=== PATIENT | male | born 1940 | race African-American/Black ===

== ENCOUNTER 2020-06-23 10:54 | Emergency (ER) | payer OTHER ==
--- OUTSIDE RECORDS SUMMARY | 2020-06-23 10:57 | XMS REPORT | Continuity of Care Document ---
:1940 Author Organization [facility] t Address [address] [place] [address] Dr. 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 Social History Smoking Status Start Date Stop Date Source Never Smoker [place] [facility] P júnior Medications Ordered Filled Start Stop Current Ordering Indication Dosage Frequency Signature Comments Components Source Medication Medication Date Date Medication? Clinician (SIG) Name Name atorvastati atorvastati No 1 Q1D atorvastat [place] n 40 mg n 40 mg in 40 mg Famil y tablet Take tablet Take tablet Practic 1 tablet 1 tablet Take 1 e every day every day tablet by oral by oral every day route. route. by oral route. bicalutamid bicalutamid No bicalutami [place] e 50 mg e 50 mg de 50 mg Famil y tablet TAKE tablet TAKE tablet Practic 1 TABLET BY 1 TABLET BY TAKE 1 e MOUTH ONCE MOUTH ONCE TABLET BY DAILY AT DAILY AT MOUTH ONCE BEDTIME BEDTIME DAILY AT BEDTIME Jardiance Jardiance No 1 Q[address]D [address]ard[address] [facility] 25 mg 25 mg 25 mg Family tablet Take tablet Take tablet Practic 1 tablet 1 tablet Take 1 e every day every day tablet by oral by oral every day route. route. by oral route. metformin metformin No 2 BID metformin [facility] ER 500 mg ER 500 mg ER 500 mg Family tablet,exte tablet,exte tablet,ext Practic nded nded ended e release 24 release 24 release 24 hr Take 2 hr Take 2 hr Take 2 tablets tablets tablets twice a day twice a day twice a by oral by oral day by route. route. oral route. tamsulosin tamsulosin No tamsulosin [facility] 0.4 mg 0.4 mg 0.4 mg Family capsule per capsule per capsule Practic Uro Uro per Uro e Immunizations Ordered Immunization Filled Immunization Date Status Commen ts Source Name Name zoster, unspecified zoster, unspecified 2019-06-[address] [place] [place] formulation formulation 00:00:00 Practice pneumococcal pneumococcal 2019-06-13 Completed [facility] jovita conjugate PCV 13 conjugate PCV 13 00:00:00 Pr actice influenza, influenza, 2019-06-[address] [place] [place] [facility] injectable, injectable, 00:00:00 Practice quadrivalent quadrivalent Vital Signs Vital Name Observation Time Observation Value Comments Source BP Diastolic 2020-03-03 00:00:00 274 mm[Hg] [facility] Height 2020-03-03 00:00:00 69.6 [in_i] [facility] BMI (Body Mass 2020-03-03 00:00:00 29.2 kg/m2 [facility] Family Index) Practice BP Systolic 2020-03-03 00:00:00 112 mm[Hg] [facility] Body Weight 2020-03-03 00:00:00 201.2 [lb_av] [facility] BP Diastolic 2019-09-14 00:00:00 65 mm[Hg] [facility] Height 2019-09-14 00:00:00 69.6 [in_i] [facility] BMI (Body Mass 2019-09-14 00:00:00 28.4 kg/m2 [facility] Family Index) Practice BP Systolic 2019-09-14 00:00:00 128 mm[Hg] [facility] Body Weight 2019-09-14 00:00:00 195.5 [lb_av] [facility] Procedures Procedure Date / Time Performing Clinician Source Performed Hemorrhoidectomy 1997-04-14 00:00:00 [facility] Cataract Surgery Complex [facility] Plan of Care Planned Activity Planned Date Details Comments Source Diagnostic Test Pending 2020-03-03 HbA1c (hemoglobin [place] [facility] 00:00:00 A1c), blood [code Practice = HbA1c (hemoglobin A1c), blood] Diagnostic Test Pending 2020-03-03 lipid panel, Vill age Family 00:00:00 serum [code = Practice lipid panel, serum] Instructions [facility] Encounters Start End Encounter Admission Attending Care Care Encounter Source Date/Time Date/Time Type Type Clinicians Facility Department ID 2020-03-03 2020-03-03 Delfino Lopes [facility] [place] - [id number] [facility] 00:00:00 00:00:00 MD Isidoro: [facility] Famil y [address] [facility] , [place] [address], ([facility]) [place] [address] , Ph. 2019-09-14 2019-09-14 Delfino Lopes [facility] [place] - [id number] [facility] 00:00:00 00:00:00 MD Isidoro: [facility] y [address] [facility] [address] [place] [address], ([facility]) [place] [address] , Ph. 2017-12-09 2017-12-09 Outpatient [facility] [id number] Access 00:00:00 00:00:00 H, PROVIDER He alth Results This patient has no known results.
[2020-06-23] MEDS ORDERED: NACL 0.9% IRR SOLN 2,000 ML IRR ONE ×4 (13:13→19:29)
[2020-06-23] MEDS ORDERED: LIDOCAINE VISCOUS 2% SOLN 15 ML UDC ONE (13:14)
[2020-06-23 13:40] LABS: Absolute Lymphocytes (CBC) 0.5 K/uL (0.7-4.9); Basophils % 0.7 % (0-1.3); Hematocrit 37.4 % (39.6-49.0); Lymphocytes % 5.3 % (15.3-44.8); MPV 9.3 fL (7.6-11.3); RBC Red Blood Cell Count 4.34 M/uL (4.33-5.43)
[2020-06-23 13:59] LABS: Protime INR 1.06
[2020-06-23 14:10] LABS: Albumin 3.9 g/dL (3.4-5.0); Bilirubin Direct 0.2 mg/dL (0-0.2); Bilirubin Total 0.8 mg/dL (0.2-1.0); Potassium 3.8 mmol/L (3.5-5.1); Protein, Total 8.7 g/dL (6.4-8.2)
[2020-06-23 14:19] LABS: Blood Morphology Comment NOT SEEN (NOT SEEN); Platelet Estimate ADEQ; White Blood Cell Scan OK (OK)
[2020-06-23] MEDS ORDERED: HYDRALAZINE HCL 20 MG/ML VIAL ONE (15:37)
--- NOTE | 2020-06-23 16:39 | ER ---
Nurse's Notes [facility] Name: Leonid Guerrero Age: 79 yrs Sex: Male : 1940 Arrival Date: 06/23/2020 Time: 10:56 Bed 5 Private MD: Diagnosis: Acute kidney failure, unspecified;Obstructive and reflux uropathy;Hematuria Presentation: 06/23 11:43 Chief complaint: Patient states: "I haven't been able to pee for the last 4 hours and I aa5 keep bleeding from my penis". Pt c/o suprapubic pain. Coronavirus screen: At this time, the client does not indicate any symptoms associated with coronavirus-19. Ebola Screen: Patient negative for fever greater than or equal to 101.5 degrees Fahrenheit, and additional compatible Ebola Virus Disease symptoms. Initial Sepsis Screen: Does the patient meet any 2 criteria? No. Patient's initial sepsis screen is negative. Does the patient have a suspected source of infection? No. Patient's initial sepsis screen is negative. Risk Assessment: Do you want to hurt yourself or someone else? Patient reports no desire to harm self or others. Onset of symptoms was June 23, 2020. 11:43 Method Of Arrival: Ambulatory aa5 11:43 Acuity: ELIZABETH 3 aa5 Historical: - Allergies: 11:45 No Known Allergies; aa5 - PMHx: 11:45 Diabetes - NIDDM; aa5 - PSHx: 11:45 hemorrhoidectomy; aa5 - Immunization history:: Adult Immunizations unknown. - Social history:: Smoking status: Patient denies any tobacco usage or history of. Screenin:58 Abuse screen: Denies threats or abuse. Denies injuries from another. Nutritional hb screening: No deficits noted. Tuberculosis screening: No symptoms or risk factors identified. Fall Risk None identified. Assessment: 12:45 General: Appears in no apparent distress. Behavior is calm, cooperative. Pain: Pain hb currently is 5 out of 10 on a pain scale. Neuro: Level of Consciousness is awake, alert, obeys commands, Oriented to person, place, time, situation. Cardiovascular: Capillary refill < 3 seconds Patient's skin is warm and dry. Respiratory: Respiratory effort is even, unlabored, Respiratory pattern is regular, symmetrical. GI: No signs and/or symptoms were reported involving the gastrointestinal system. : Reports blood in urine, difficulty urinating. EENT: No signs and/or symptoms were reported regarding the EENT system. Derm: Skin is pink, warm \\T\\ dry. Musculoskeletal: No signs and/or symptoms reported regarding the musculoskeletal system. 13:30 Reassessment: Patient appears in no apparent distress at this time. Patient and/or hb family updated on plan of care and expected duration. Pain level reassessed. Patient is alert, oriented x 3, equal unlabored respirations, skin warm/dry/pink. 15:30 Reassessment: Patient appears in no apparent distress at this time. Patient and/or hb family updated on plan of care and expected duration. Pain level reassessed. Patient is alert, oriented x 3, equal unlabored respirations, skin warm/dry/pink. 16:30 Reassessment: Patient appears in no apparent distress at this time. Patient and/or hb family updated on plan of care and expected duration. Pain level reassessed. Patient is alert, oriented x 3, equal unlabored respirations, skin warm/dry/pink. 17:06 Reassessment: Pt vomited x 2. Dr. Cagle notified, zofran administered as ordered. hb 17:57 Reassessment: Patient appears in no apparent distress at this time. Patient and/or hb family updated on plan of care and expected duration. Pain level reassessed. Patient is alert, oriented x 3, equal unlabored respirations, skin warm/dry/pink. 18:12 Reassessment: report called to Jenni SANTANA at [facility] Er. 19:15 Reassessment: Patient appears in no apparent distress at this time. Patient is alert, rr5 oriented x 3, equal unlabored respirations, skin warm/dry/pink. report given to [facility] awake alert vital signs taken and recorded. with 3 way whatley catheter continuous bladder irrigation. Vital Signs: 11:45 BP 196 / 105; Pulse 88; Resp 20 S; Temp 98.2(O); Pulse Ox 97% on R/A; Weight 94.35 kg aa5 (R); Height 5 ft. 11 in. (180.34 cm) (R); 14:22 BP 201 / 87; Pulse 68; Resp 20; Pulse Ox 96% on R/A; mh5 15:30 BP 165 / 78; Pulse 74; Resp 15; Pulse Ox 100% on R/A; hb 16:30 BP 172 / 82; Pulse 75; Resp 17; Pulse Ox 99% ; hb 17:58 BP 151 / 71; Pulse 104; Resp 15; Pulse Ox 96% on R/A; Pain 0/10; hb 19:15 BP 153 / 70; Pulse 99; Resp 19; Pulse Ox 99% ; rr5 11:45 Body Mass Index 29.01 (94.35 kg, 180.34 cm) aa5 ED Course: 10:56 Patient arrived in ED. ds1 11:43 Arm band placed on. aa5 11:44 Triage completed. aa5 12:42 Rahul Cagle MD is Attending Physician. tw4 12:53 Farideh Hawthorne, RN is Primary Nurse. hb 14:23 Patient has correct armband on for positive identification. Placed in gown. Bed in low mh5 position. Call light in reach. Side rails up X 1. Warm blanket given. Pulse ox on. NIBP on. 14:23 Initial lab(s) drawn, by me, sent to lab. Inserted saline lock: 22 gauge antecubital 5 area, using aseptic technique. Blood collected. 14:24 Basic Metabolic Panel Sent. 5 14:24 CBC with Diff Sent. [facility] 14:24 Hepatic Function Sent. [facility] 14:32 3-way catheter inserted, using sterile technique, 20 Fr. Returned bloody urine. hb 16:01 initiated a transfer with Donte Nichole from the [facility]. eb 16:[address] Lopez from [facility] with Dr. Tsering bo for patient transfer consultation. 16:[address] Saba the urologist suggestion clerk for [facility] with eb Dr. Cagle for patient transfer consultation. 17:31 administrative approval given by Donte Nichole/ patient has been accepted to [facility] / Dr. Jorge Lopez has accepted the patient in transfer/ report to be called to [phone]. 18:14 Bladder irrigated via Whatley with 2L bag x 3 normal saline returned hector blood Patient hb tolerated well. 19:14 Primary Nurse role handed off by Farideh Hawthorne, RN mw2 19:16 No provider procedures requiring assistance completed. Patient transferred, IV remains rr5 in place. intact, No redness/swelling at site. Administered Medications: 10:22 Drug: hydrALAZINE 20 mg Route: IV; Rate: bolus; Site: right antecubital; hb 10:24 Follow up: IV Status: Completed infusion; IV Intake: 5ml hb 11:50 Follow up: Response: No adverse reaction hb 17:06 Drug: Zofran (Ondansetron) 4 mg Route: IVP; Site: right antecubital; hb 17:45 Follow up: Response: No adverse reaction hb Intake: 10:24 IV: 5ml; Total: 5ml. hb Output: 15:09 Urine: 1400ml (Whatley); Total: 1400ml. 5 Outcome: 16:39 ER care complete, transfer ordered by . tw4 19:16 Transferred by ground EMS Transfer form completed. rr5 19:16 Condition: stable 19:16 Instructed on the need for transfer. 19:17 Patient left the ED. rr5 Signatures: Camille Madden ds1 Shanika Richardson, RN RN aa5 Farideh Hawthorne, RN RN Iraida Hernandez 5 Rahul Cagle MD MD 4 Patricia Patel mw2 Tiki Sunshine Raymond, RN RN rr5
--- NOTE | 2020-06-23 16:39 | EDPHYS ---
Physician Documentation [facility] Name: Leonid Guerrero Age: 79 yrs Sex: Male : 1940 Arrival Date: 06/23/2020 Time: 10:56 Bed 5 Private MD: ED Physician Rahul Cagle HPI: 06/23 12:57 This 79 yrs old Black Male presents to ER via Ambulatory with complaints of Penile tw4 Bleeding. 12:57 The patient presents with urinary symptoms, retention, unable to void, HEMATURIA. tw4 Onset: The symptoms/episode began/occurred today. Modifying factors: The symptoms are alleviated by nothing, the symptoms are aggravated by nothing. Associated signs and symptoms: The patient has no apparent associated signs or symptoms. The patient has not experienced similar symptoms in the past. Historical: - Allergies: 11:45 No Known Allergies; aa5 - PMHx: 11:45 Diabetes - NIDDM; aa5 - PSHx: 11:45 hemorrhoidectomy; aa5 - Immunization history:: Adult Immunizations unknown. - Social history:: Smoking status: Patient denies any tobacco usage or history of. ROS: 12:57 Constitutional: Negative for fever, chills, and weight loss, Eyes: Negative for injury, tw4 pain, redness, and discharge, Cardiovascular: Negative for chest pain, palpitations, and edema, Respiratory: Negative for shortness of breath, cough, wheezing, and pleuritic chest pain. Exam: 16:39 Constitutional: This is a well developed, well nourished patient who is awake, alert, tw4 and in no acute distress. Head/Face: Normocephalic, atraumatic. Chest/axilla: Normal chest wall appearance and motion. Nontender with no deformity. No lesions are appreciated. Cardiovascular: Regular rate and rhythm with a normal S1 and S2. No gallops, murmurs, or rubs. Normal PMI, no JVD. No pulse deficits. Respiratory: Lungs have equal breath sounds bilaterally, clear to auscultation and percussion. No rales, rhonchi or wheezes noted. No increased work of breathing, no retractions or nasal flaring. 16:39 Back: No spinal tenderness. No costovertebral tenderness. Full range of motion. MS/ Extremity: Pulses equal, no cyanosis. Neurovascular intact. Full, normal range of motion. Neuro: Awake and alert, GCS 15, oriented to person, place, time, and situation. Cranial nerves II-XII grossly intact. Motor strength 5/5 in all extremities. Sensory grossly intact. Cerebellar exam normal. Normal gait. 16:39 Abdomen/GI: Inspection: abdomen appears normal, Bowel sounds: normal, Palpation: moderate abdominal tenderness, in the suprapubic area. Vital Signs: 11:45 BP 196 / 105; Pulse 88; Resp 20 S; Temp 98.2(O); Pulse Ox 97% on R/A; Weight 94.35 kg aa5 (R); Height 5 ft. 11 in. (180.34 cm) (R); 14:22 BP 201 / 87; Pulse 68; Resp 20; Pulse Ox 96% on R/A; mh5 15:30 BP 165 / 78; Pulse 74; Resp 15; Pulse Ox 100% on R/A; hb 16:30 BP 172 / 82; Pulse 75; Resp 17; Pulse Ox 99% ; hb 17:58 BP 151 / 71; Pulse 104; Resp 15; Pulse Ox 96% on R/A; Pain 0/10; hb 19:15 BP 153 / 70; Pulse 99; Resp 19; Pulse Ox 99% ; rr5 11:45 Body Mass Index 29.01 (94.35 kg, 180.34 cm) aa5 MDM: 12:42 Patient medically screened. tw4 16:40 Differential diagnosis: nonspecific abdominal pain, appendicitis, urinary retention, tw4 Davidson catheter problem. Data reviewed: vital signs, nurses notes. Data interpreted: Pulse oximetry: Interpretation: normal. Counseling: I had a detailed discussion with the patient and/or guardian regarding: the historical points, exam findings, and any diagnostic results supporting the discharge/admit diagnosis. 03 12:56 Order name: Basic Metabolic Panel [facility] 06/23 12:56 Order name: CBC with Diff; Complete Time: 14:39 tw4 06/23 14:39 Interpretation: Normal except: HGB 12.1; HCT 37.4; LYMA 0.5; NEUT A 8.9; LYM% 5.3; DERICK% tw4 88.8; RDW 15.5. 03 12:56 Order name: Hepatic Function tw4 06/23 12:56 Order name: PT-INR; Complete Time: 14:38 tw4 06/23 14:38 Interpretation: Within normal limits: PT 12.2. tw4 06/23 12:56 Order name: Ptt, Activated; Complete Time: 14:38 [facility] 06/23 14:38 Interpretation: Abnormal: PTT 23.0. tw4 06/23 12:56 Order name: Basic Metabolic Panel; Complete Time: 14:38 [facility] 06/23 14:38 Interpretation: Normal except: GFR 17; CRE 4.05; BUN 45; GLUC 268; CO2 20. tw 06/23 12:56 Order name: IV Saline Lock; Complete Time: 14:23 tw4 06/23 12:56 Order name: Labs collected and sent; Complete Time: 14:24 tw 06/23 12:56 Order name: Liver (Hepatic) Function; Complete Time: 14:38 [facility] 06/23 14:38 Interpretation: Normal except: TP 8.7; GLOB 4.8; A/G 0.8. [facility] 06/23 14:19 Order name: CBC Smear Scan [facility] 06/23 17:13 Order name: SARS-COV-2 RT PCR EDKS 06/23 12:56 Order name: Davidson-Three way; Complete Time: 14:45 tw4 Administered Medications: 10:22 Drug: hydrALAZINE 20 mg Route: IV; Rate: bolus; Site: right antecubital; hb 10:24 Follow up: IV Status: Completed infusion; IV Intake: 5ml hb 11:50 Follow up: Response: No adverse reaction hb 17:06 Drug: Zofran (Ondansetron) 4 mg Route: IVP; Site: right antecubital; hb 17:45 Follow up: Response: No adverse reaction hb Disposition: 06/23/20 16:39 Transfer ordered to Other Acute Care Facility. Diagnosis are Acute kidney failure, unspecified, Obstructive and reflux uropathy, Hematuria. - Reason for transfer: Higher level of care. - Accepting physician is Dr Soto. - Condition is Stable. - Problem is new. - Symptoms have improved. Signatures: Dispatcher [employer] [facility] Shanika Richardson RN RN aa5 Farideh Hawthorne RN RN hb Rahul Cagle MD MD tw4 Nabil Chase RN RN rr5 Corrections: (The following items were deleted from the chart) 16:34 15:36 CORONAVIRUS+ ordered. EDMS EDMS 19:17 16:39 06/23/2020 16:39 Transfer ordered to Other Acute Care Facility. Diagnosis is rr5 Acute kidney failure, unspecified; Obstructive and reflux uropathy; Hematuria. Reason for transfer: Higher level of care. Accepting physician is Dr Soto. Condition is Stable. Problem is new. Symptoms have improved. tw4
[2020-06-23] MEDS ORDERED: ONDANSETRON 4 MG/2 ML VIAL ONE (17:16)
[2020-06-23 19:22] VITALS: TEMP 98.2
[2020-06-23 19:27] VITALS: BP 153/70; O2SAT 99
== END 2020-06-23 19:17 ==
LOC: ER 10:54
DX: N17.9 Acute kidney failure, unspecified (principal); Z20.822 Contact with and (suspected) exposure to COVID-19; N13.9 Obstructive and reflux uropathy, unspecified; R31.9 Hematuria, unspecified; E11.9 Type 2 diabetes mellitus without complications
CPT/HCPCS: 85025; 80048; 36415; 85610; 80076; 85730; 51700; 96375; 96374; 99285; U0003; J0360; J2405

== ENCOUNTER 2020-08-01 10:46 | Emergency (ER) | payer OTHER ==
--- OUTSIDE RECORDS SUMMARY | 2020-08-01 10:50 | XMS REPORT | Continuity of Care Document ---
:[address] [facility] [place], [place] t Address [address] [place] [address] Dr. Del Toro [address] [place] [address] Care Team Providers Name Role Phone Lelia Lopez DO Attending Clinician Marcy EVERETT Attending Clinician LELIA LOPEZ Attending Clinician Unavailable MARCY Admitting Clinician Unavailable Payers Payer Name Policy Type Policy Effective Date Expiration Date Sour ce Number [facility] [id number] 2019 [facility] [id number] 2019-Pre 00:00:00 L Business Exchange Contracted Medic al Center Problems Condition Condition Condition Status Onset Resolution Last Treating Co mments Source Name Details Category Date Date Treatment Clinician Date Hematuria Hematuria Disease [facility] Microalbum Microalbum Problem Active [facility] inuric inuric 04 Family diabetic Diabetic 00:00: Practi c nephropath Nephropath 00 e y y Malignant Malignant Problem Active Ursula elba tumor of Tumor of 09-13 Family prostate Prostate 00:00: Practi c 00 e Diabetes Diabetes Problem Active Quiroz ge mellitus Mellitus 09-13 Family 00:00: Practic 00 e Dyslipidem Dyslipidem Problem Active [facility] ia ia 09-13 Family 00:00: Practic 00 e Benign Benign Problem Active [place] prostatic Prostatic 09-13 Fami ly hypertroph Hypertroph 00:00: Pr actic y without y without 00 e outflow Outflow obstructio Obstructio n n Allergies, Adverse Reactions, Alerts This patient has no known allergies or adverse reactions. Social History Social Habit Start Date Stop Date Quantity Comments Source Sex Assigned At [facility] Smoking Status Start Date Stop Date Source Never Smoker [facility] Family Erin callejas Medications Ordered Filled Start Stop Current Ordering Indication Dosage Frequency Signature Comments Components Source Medication Medication Date Date Medication? Clinician (SIG) Name Name amLODIPine No 10mg QD Take [address] [address] (NORVASC) 3-15 04-14 tablet (10 Yelena es - 10 MG 00:00: 23:59 mg total) Medica l tablet 00 :00 by mouth Center daily for 30 days. bicalutamid Yes 50mg QD Take [address] [facility] (CASODEX) 3-14 by mouth Luke s - 50 MG 15:35: nightly. Medical tablet 54 Center glipiZIDE Yes 5mg QD Take [address] [address] (GLUCOTROL) 3-14 by mouth Luke s - 5 MG tablet 15:35: daily Medic al 54 Extended Center Release . atorvastati Yes 40mg QD Take [address] n (LIPITOR) 3-14 by mouth Luke s - 40 MG 15:35: daily. Medical tablet 54 Center metFORMIN Yes 500mg Take [address] [facility] (GLUCOPHAGE 3-14 mg by Lukes - ) 500 MG 15:35: mouth 2 Medica l tablet 54 (two) Center times daily with breakfast and dinner. tamsulosin Yes .4mg QD Take 0.[address] (FLOMAX) 3-14 mg by Lukes - 0.4 mg Cap 15:35: mouth Medica l 24 hr 54 daily. Center capsule Missing or No 25mg QD Take [address] Non-Formula 3-14 03-14 by mouth Yelena es - ry 11:37: 00:00 daily. Medical Medication 29 :00 [place] metFORMIN 2020- No 500mg Take [address] (GLUCOPHAGE 3-14 03-14 mg by Lukes - ) 850 MG 11:03: 00:00 mouth 2 Medic al tablet 25 :00 (two) Center times daily with breakfast and dinner . bicalutamid bicalutamid No bicalutami [place] e 50 mg e 50 mg de 50 mg Famil y tablet TAKE tablet TAKE tablet Practic 1 TABLET BY 1 TABLET BY TAKE 1 e MOUTH ONCE MOUTH ONCE TABLET BY DAILY AT DAILY AT MOUTH ONCE BEDTIME BEDTIME DAILY AT BEDTIME glipizide glipizide No 1 Q1D glipizide [facility] ER 5 mg ER 5 mg ER 5 mg Family tablet, tablet, tablet, Practi c extended extended extended e release 24 release 24 release 24 hr Take 1 hr Take 1 hr Take 1 tablet tablet tablet every day every day every day by oral by oral by oral route. route. route. Jardiance Jardiance No Jardiance [facility] 25 mg 25 mg 25 mg Family tablet TAKE tablet TAKE tablet Practic 1 TABLET BY 1 TABLET BY TAKE 1 e MOUTH ONCE MOUTH ONCE TABLET BY DAILY DAILY MOUTH ONCE DAILY metformin metformin No metformin [facility] ER 500 mg ER 500 mg ER 500 mg Family tablet,exte tablet,exte tablet,ext Practic nded nded ended e release 24 release 24 release 24 hr TAKE 2 hr TAKE 2 hr TAKE 2 TABLETS BY TABLETS BY TABLETS BY MOUTH TWICE MOUTH TWICE MOUTH DAILY DAILY TWICE DAILY tamsulosin tamsulosin tamsulosin [facility] 0.4 mg 0.4 mg 0.4 mg [facility] capsule per capsule per capsule Practic Uro Uro per Uro e atorvastati atorvastati No atorvastat [facility] n 40 mg n 40 mg in 40 mg Famil y tablet TAKE tablet TAKE tablet Practic 1 TABLET BY 1 TABLET BY TAKE 1 e MOUTH ONCE MOUTH ONCE TABLET BY DAILY DAILY MOUTH ONCE DAILY Immunizations Ordered Immunization Filled Immunization Date Status Commen ts Source Name Name influenza, influenza, 2020-03-03 Completed [facility] high-dose, high-dose, 16:07:00 Practice quadrivalent quadrivalent zoster, unspecified zoster, unspecified 2019-06-13 Completed [facility] formulation formulation 00:00:00 Practice pneumococcal pneumococcal 2019-06-13 Completed [facility] jovita conjugate PCV 13 conjugate PCV 13 00:00:00 Pr actice influenza, influenza, 2019-06-13 [facility] injectable, injectable, 00:00:00 Practice quadrivalent quadrivalent Vital Signs Vital Name Observation Time Observation Value Comments Source BP Diastolic 2020-07-25 00:00:00 70 mm[Hg] [facility] Height 2020-07-25 00:00:00 69.6 [in_i] [facility] BMI (Body Mass Index) 2020-07-25 00:00:00 28.4 kg/m2 [facility] BP Systolic 2020-07-25 00:00:00 121 mm[Hg] [facility] Body Weight 2020-07-25 00:00:00 196 [lb_av] [facility] Practice BP Diastolic 2020-03-03 00:00:00 274 mm[Hg] [facility] Height 2020-03-03 00:00:00 69.6 [in_i] [facility] Practice BMI (Body Mass Index) 2020-03-03 00:00:00 29.2 kg/m2 [facility] Practice BP Systolic 2020-03-03 00:00:00 112 mm[Hg] [facility] Body Weight 2020-03-03 00:00:00 201.2 [lb_av] [facility] Practice BP Diastolic 2019-09-14 00:00:00 65 mm[Hg] [facility] Height 2019-09-14 00:00:00 69.6 [in_i] [facility] Practice BMI (Body Mass Index) 2019-09-14 00:00:00 28.4 kg/m2 [facility] BP Systolic 2019-09-14 00:00:00 128 mm[Hg] [facility] Body Weight 2019-09-14 00:00:00 195.5 [lb_av] [facility] Practice Systolic blood 2020-06-25 12:00:00 164 mm[Hg] [facility] Diastolic blood 2020-06-25 12:00:00 74 mm[Hg] [facility] S [facility] Heart rate 2020-06-25 12:00:00 72 /min [facility] Body temperature 2020-06-25 12:00:00 35.72 Kina [facility] Respiratory rate 2020-06-25 12:00:00 20 /min [facility] Oxygen saturation in 2020-06-25 12:00:00 97 /min [facility] - Arterial blood by Medical Ce nter Pulse oximetry Body weight 2020-06-23 22:00:00 90.9 kg [facility] Procedures Procedure Date / Time Performing Clinician Source Performed POCT-GLUCOSE METER 2020-06-25 06:10:00 Jenniffer Lopez [facility] CBC W/PLT COUNT & AUTO 2020-06-25 03:59:00 Jenniffer Lopez [facility] BASIC METABOLIC PANEL (7) 2020-06-25 03:59:00 Jenniffer Lopez [facility] MAGNESIUM 2020-06-25 03:59:00 Rivers, Tonny [facility] PHOSPHORUS 2020-06-25 03:59:00 Rivers, [facility] POCT-GLUCOSE METER 2020-06-24 21:40:00 Jenniffer Lopez [facility] CREATININE, RANDOM URINE 2020-06-24 16:22:00 Rivers, [facility] SODIUM, RANDOM URINE 2020-06-24 16:22:00 Rivers, [facility] POCT-GLUCOSE METER 2020-06-24 16:07:00 eJnniffer Lopez [facility] POCT-GLUCOSE METER 2020-06-24 12:28:00 Jenniffer Lopez [facility] US RENAL COMPLETE 2020-06-24 12:18:00 Marcy [facility] CT ABDOMEN/PELVIS WITHOUT 2020-06-24 11:28:00 Trisha Vidal Critical access hospital CONTRAST [facility] POCT-GLUCOSE METER 2020-06-24 06:23:00 Jenniffer Lopez [facility] CBC W/PLT COUNT & AUTO 2020-06-24 03:34:00 [facility] COMPREHENSIVE METABOLIC 2020-06-24 03:33:00 [facility] PROTHROMBIN TIME/INR 2020-06-24 03:33:00 [facility] PSA 2020-06-24 03:33:00 [facility] URINALYSIS WITH MICROSCOPIC 2020-06-23 23:39:00 [facility] IF INDICATED [facility] CREATININE, RANDOM URINE 2020-06-23 23:39:00 [facility] SODIUM, RANDOM URINE 2020-06-23 23:39:00 [facility] URINALYSIS MICROSCOPIC 2020-06-23 23:39:00 Marcy [facility] POCT-GLUCOSE METER 2020-06-23 23:00:[address] [facility] Hemorrhoidectomy 1997-04-14 00:00:00 [facility] Cataract Surgery Complex [facility] Practice Plan of Care Planned Activity Planned Date Details Comments Source Diagnostic Test 2020-07-25 HbA1c (hemoglobin [facility] Pending 00:00:00 A1c), blood [code = Practice HbA1c (hemoglobin A1c), blood] Diagnostic Test 2020-07-25 lipid panel, serum [facility] Pending 00:00:00 [code = lipid panel, Practic e serum] Future Scheduled Test 2020-06-[address] [facility] - [facility] measurement Medical Center (procedure) [code = 66518350] Future Scheduled Test 2020-04-[address] [facility] - 00:00:00 (12+) [code = Medical Center DEPRESSION SCREENING (12+)] Future Scheduled Test 1990 SHINGLES VACCINES ([address] [facility] - 00:00:00 of 2) [code = Medical Center SHINGLES VACCINES (1 of 2)] Future Scheduled Test 1959-10-29 DTAP/TDAP/TD [facility] VACCINES (1 - Tdap) Medical Center [code = DTAP/TDAP/TD VACCINES (1 - Tdap)] Future Scheduled Test [address] [facility] - 00:00:00 SCREENING [code = Medical nter HEPATITIS C SCREENING] Future Scheduled Test 1950 DIABETIC EYE EXAM [facility] [code = DIABETIC EYE Medical Center EXAM] Future Scheduled Test [facility] examination Medical Center (regime/therapy) [code = 594978693] Future Scheduled Test 1950 Urine screening for [facility] - 00:[facility]00 protein (procedure) Medical Center [code = 702588258] Future Scheduled Test MEDICARE ANNUAL [facility] - 00:00:00 WELLNESS (YEAR 2 or Medical Center FIRST YEAR if no IPPE) [code = MEDICARE ANNUAL WELLNESS (YEAR 2 or FIRST YEAR if no IPPE)] Future Scheduled Test Your labs are normal [facility] except... 1. Lipids Practice are higher than I would like. Take your meds as directed. I recommend low fat diet and walking. I will monitor. 2. Your Diabetes is high. Take your meds. I am adding a new med, Glipizide. I recommend low carb / sugar diet and walking. I will monitor. [code = Your labs are normal except... 1. Lipids are higher than I would like. Take your meds as directed. I] Future Appointment 2020-10-24 Delfino Chaudhry, [address] [facility] 00:00:[address] [address] Instructions [facility] Encounters Start End Encounter Admission Attending Care Care Encounter Source Date/Time Date/Time Type Type Clinicians Facility Department ID 2020-07-25 2020-07-25 [facility] [place] [facility] [id number] [facility] 00:00:00 00:00:00 MD Isidoro: [facility] Nicole y 6122 Medical - Practi [facility] VM_HOU[address]East e , [place] [address], ([facility]) [place] [address] , Ph. 2020-03-03 2020-03-03 [facility] [place] - [id number] [facility] 00:00:00 00:00:00 MD Isidoro: [facility] y 6[address] Medical - Practi [facility] VM[facility]HOU[address]East e , [place] [address], ([facility]) [place] [address] , Ph. 2019-09-14 2019-09-14 [facility] [place] - [id number] [facility] 00:00:00 00:00:00 MD Isidoro: [facility] Nicole y 6[address] Medical - Practi c [place] [facility] e , [place] [address], ([facility]) [place] [address] , Ph. 2017-12-09 2017-12-09 Outpatient [facility] [id number] Access 00:00:00 00:00:00 H, PROVIDER He alth Results Test Description Test Time Test Comments Results Result Comments Source POC-Glucose meter 2020-06-25 06:23:00 Test Item Value Reference Range Interpretation Comme nts POC-Glucose Meter (test code = 155 mg/dL 70-110 H : TESTED AT [facility] [address] [place] [address] [place] [address]: Editor Sound/Techni getachew ID = [id number] for Alvin Castellanos Lab Interpretation (test code = Abnormal 77552-5) [facility] [id number] 06:23:00 Test Item Value Reference Range Interpretation Comments POC-GLUCOSE METER 155 mg/dL 70-110 H : TESTED A T [facility] (BEAKER) (test code [address] LAKSHMI PUENTE, = 1538) [place] [address]: Editor Sound/Techni getachew ID = [id number] for Alvin Still Basic Metabolic [id number] 04:43:00 Test Item Value Reference Range Interpretation Comments Sodium (test code = 144 meq/L 732-352 1250-2) Potassium (test code = 3.1 meq/L 3.6-5.5 L 2823-3) Chloride (test code = 108 meq/L 98-106 H 2075-0) CO2 (test code = 20 meq/L 20-29 2028-9) BUN (test code = 15 mg/dL 10-26 3094-0) Creatinine (test code 1.25 mg/dL 0.5-1.2 H = 2160-0) Glucose (test code = 134 mg/dL 70-110 H 2345-7) Calcium (test code = 8.8 mg/dL 8.5-10.5 82132-6) EGFR (test code = 68 mL/min/1.73 [place] [address]-4) NOT ACCURATE CREATININE CLEARANCE IN PREDICTING GLOMERULAR FILTRATION RATE . ESTIMATED GFR I S NOT APPLICABLE FOR DIALYSIS PATIENTS. LIBBY (test code = LIBBY) Editor Sound ID - Ledy Albarran Lab Interpretation Abnormal (test code = 07540-2) [facility] MET[facility]OLIC [id number] 04:43:00 Test Item Value Reference Range Interpretation Comments SODIUM (BEAKER) 144 meq/L 135-148 (test code = 381) POTASSIUM (BEAKER) 3.1 meq/L 3.6-5.5 L (test code = 379) CHLORIDE (BEAKER) 108 meq/L 98-106 H (test code = 382) CO2 (BEAKER) (test 20 meq/L 20-29 code = 355) BLOOD UREA NITROGEN 15 mg/dL 10-26 (BEAKER) (test code = 354) CREATININE (BEAKER) 1.25 mg/dL 0.50-1.20 H (test code = 358) GLUCOSE RANDOM 134 mg/dL 70-110 H (BEAKER) (test code = 652) CALCIUM (BEAKER) 8.8 mg/dL 8.5-10.5 (test code = 697) EGFR (BEAKER) (test 68 mL/min/1.73 ESTIMA GHAZAL GFR IS code = 1092) sq m NOT ACCURATE CREATININE CLEARANCE IN PREDICTING GLOMERULAR FILTRATION RATE . ESTIMATED GFR I S NOT APPLICABLE FOR DIALYSIS PATIEN TS. Editor Sound ID - Ledy [id number] 04:42:00 Test Item Value Reference Range Interpretation Comments Magnesium (test code = 1.7 mg/dL 1.5-3 81307-0) LIBBY (test code = LIBBY) Editor Sound ID - Ledy T Lab Interpretation (test Normal code = 33694-3) [facility]2021-03-14 04:42:00 Test Item Value Reference Range Interpretation Comments Phosphorus (test code = 2.7 mg/dL 2.5-4.5 2777-1) LIBBY (test code = LIBBY) Editor Sound ID - Ledy T Lab Interpretation (test Normal code = 04054-4) [facility]UM2021-03-14 04:42:00 Test Item Value Reference Range Interpretation Comments MAGNESIUM (BEAKER) (test code = 1.7 mg/dL 1.5-3.0 627) Editor Sound ID - Ledy [id number] 04:42:00 Test Item Value Reference Range Interpretation Comments PHOSPHORUS (BEAKER) (test code = 2.7 mg/dL 2.5-4.5 604) Editor Sound ID - Ledy TCBC with platelet count + automated [id number] 04:14:00 Test Item Value Reference Range Interpretation Comments WBC (test code = 6690-2) 8.9 See_Comment [A utomated message] The system Bigpoint generated this result transmitted ref erence range: 4.0 - 10 .0 K/L. The refe rence range was not u sed to interpret this result as normal/abnor mal. RBC (test code = 789-8) 4.52 See_Comment [Au tomated message] The system play140 generated this result transmitted ref erence range: 4.20 - 5 .80 M/L. The refe rence range was not u sed to interpret this result as normal/abnor mal. MCHC (test code = 786-4) 32.0 See_Comment L [A utomated message] The system play140 generated this result transmitted ref erence range: 32.0 - 3 6.0 GM/DL. The refe rence range was not u sed to interpret this result as normal/abnor mal. Hematocrit (test code = 39.7 % 36-50 4544-3) MCV (test code = 787-2) 87.8 fL 82-99 MCH (test code = 785-6) 28.1 pg 27-33 RDW (test code = 788-0) 15.1 % 12-15 H Platelets (test code = 233 See_Comment [Aut omated message] 777-3) The system Bigpoint generated this result transmitted ref erence range: 150 - 43 0 K/CU MM. The referen ce range was not u sed to interpret this result as normal/abnor mal. MPV (test code = 10.3 fL 6-11.5 59419-6) nRBC (test code = 413) 0 See_Comment [Aut omated message] The system Bigpoint generated this result transmitted ref erence range: 0 - 0 /1 00 WBC. The refere nce range was not u sed to interpret this result as normal/abnor mal. % Neutros (test code = 73 % 429) % Lymphs (test code = 16 % 430) % Monos (test code = 9 % 431) % Eos (test code = 432) 1 % % Baso (test code = 437) 1 % # Neutros (test code = 6.43 See_Comment [Aut omated message] 670) The system Bigpoint generated this result transmitted ref erence range: 1.80 - 8 .00 K/L. The refe rence range was not u sed to interpret this result as normal/abnor mal. # Lymphs (test code = 1.39 See_Comment L [Auto mated message] 414) The system Bigpoint generated this result transmitted ref erence range: 1.48 - 4 .50 K/L. The refe rence range was not u sed to interpret this result as normal/abnor mal. # Monos (test code = 0.80 See_Comment [Autom ated message] 415) The system Bigpoint generated this result transmitted ref erence range: 0.00 - 1 .30 K/L. The refe rence range was not u sed to interpret this result as normal/abnor mal. # Eos (test code = 416) 0.11 See_Comment [Au tomated message] The system Bigpoint generated this result transmitted ref erence range: 0.00 - 0 .50 K/L. The refe rence range was not u sed to interpret this result as normal/abnor mal. # Baso (test code = 417) 0.08 See_Comment [A utomated message] The system Bigpoint generated this result transmitted ref erence range: 0.00 - 0 .20 K/L. The refe rence range was not u sed to interpret this result as normal/abnor mal. Immature 1 % 0-0 H Granulocytes-Relative (test code = 2801) Lab Interpretation (test Abnormal code = 61241-8) [facility] W/PLT COUNT & AUTO [id number] 04:14:00 Test Item Value Reference Range Interpretation Comments WHITE BLOOD CELL COUNT (BEAKER) 8.9 K/ L 4.0-10.0 (test code = 775) RED BLOOD CELL COUNT (BEAKER) 4.52 M/ L 4.20-5.80 (test code = 761) HEMOGLOBIN (BEAKER) (test code = 12.7 GM/DL 13.0-16.8 L 410) HEMATOCRIT (BEAKER) (test code = 39.7 % 36.0-50.0 411) MEAN CORPUSCULAR VOLUME (BEAKER) 87.8 fL 82.0-99.0 (test code = 753) MEAN CORPUSCULAR HEMOGLOBIN 28.1 pg 27.0-33.0 (BEAKER) (test code = 751) MEAN CORPUSCULAR HEMOGLOBIN CONC 32.0 GM/DL 32.0-36.0 (BEAKER) (test code = 752) RED CELL DISTRIBUTION WIDTH 15.1 % 12.0-15.0 H (BEAKER) (test code = 412) PLATELET COUNT (BEAKER) (test 233 K/CU MM 150-430 code = 756) MEAN PLATELET VOLUME (BEAKER) 10.3 fL 6.0-11.5 (test code = 754) NUCLEATED RED BLOOD CELLS 0 /100 WBC 0-0 (BEAKER) (test code = 413) NEUTROPHILS RELATIVE PERCENT 73 % (BEAKER) (test code = 429) LYMPHOCYTES RELATIVE PERCENT 16 % (BEAKER) (test code = 430) MONOCYTES RELATIVE PERCENT 9 % (BEAKER) (test code = 431) EOSINOPHILS RELATIVE PERCENT 1 % (BEAKER) (test code = 432) BASOPHILS RELATIVE PERCENT 1 % (BEAKER) (test code = 437) NEUTROPHILS ABSOLUTE COUNT 6.43 K/ L 1.80-8.00 (BEAKER) (test code = 670) LYMPHOCYTES ABSOLUTE COUNT 1.39 K/ L 1.48-4.50 L (BEAKER) (test code = 414) MONOCYTES ABSOLUTE COUNT (BEAKER) 0.80 K/ L 0.00-1.30 (test code = 415) EOSINOPHILS ABSOLUTE COUNT 0.11 K/ L 0.00-0.50 (BEAKER) (test code = 416) BASOPHILS ABSOLUTE COUNT (BEAKER) 0.08 K/ L 0.00-0.20 (test code = 417) IMMATURE GRANULOCYTES-RELATIVE 1 % 0-0 H PERCENT (BEAKER) (test code = 2801) POCT-GLUCOSE [id number] 21:53:00 Test Item Value Reference Range Interpretation Comments POC-GLUCOSE METER 128 mg/dL 70-110 H : TESTED A T [facility] (BEAKER) (test code [address], = 1538) [place] [address]: Editor Sound/Techni getachew ID = [id number] for Heather Bautista U/S, RENAL, [id number] 17:17:00Abdomen limited area? Add comment if clarification is needed.->Renal Reason for exam:->renal failure, hematuria, h/o prostate [facility] : 1940 Sex: MFINAL REPORT Renal ultrasound dated 06/24/2020 Comment: Real-time transabdominal renal ultrasound was performed.Right kidney measures 12.0 x 6.0 x 6.5 cm. Left kidney measures 13.1 x 6.8 x 5.2 cm. Right renal cortex measures 1.9 cm. Left renal cortex measures 2.1 cm. Echogenicity of both renal parenchyma is normal. A 2.5 x 2.6 x 3 cm cyst is seen in the right kidney.No hydronephrosis is present. The urinary bladder is contracted. Doppler ultrasound demonstrates patent main renal artery and vein bilaterally. Impression: Right renal cyst. Signed: Jenniffer Palacio MDReport Verified Date/Time: 06/24/2020 17:17:31 Reading Location: [place] [id number] CT Body Reading Room US renal [id number] 17:17:00Interface, External Ris In - 06/24/2020 5:19 PM CSTFINAL REPORT Renal ultrasound dated 06/24/2020 Comment: Real-time transabdominal renal ultrasound was performed.Right kidney measures 12.0 x 6.0 x 6.5 cm. Left kidney measures 13.1 x 6.8 x 5.2 cm. Right renal cortex measures 1.9 cm. Left renal cortex measures 2.1 cm. Echogenicity of both renal parenchyma is normal. A 2.5 x2.6 x 3 cm cyst is seen in the right kidney. No hydronephrosis is present. The urinary bladder is contracted. Doppler ultrasound demonstrates patent main renal artery and vein bilaterally. Impression: Right renal cyst. Signed: Jenniffer Palacio MDReport Verified Date/Time: 06/24/2020 17:17:31 Reading Location: [facility] [id number] CT Body Reading [facility] [id number] 17:13:00 Test Item Value Reference Range Interpretation Comments Creatinine, Ur 21.8 mg/dL (test code = 2161-8) LIBBY (test code = Reference Range: No LIBBY) NormalsOperator ID - [id number] [facility] [id number] 17:13:00 Test Item Value Reference Range Interpretation Comments Sodium Urine (test 62 meq/L code = 2955-3) LIBBY (test code = Reference Range: No LIBBY) NormalsOperator ID - [id number] [facility] Center[facility]AT[facility]INE, RANDOM [id number] 17:13:00 Test Item Value Reference Range Interpretation Comments CREATININE URINE (BEAKER) (test 21.8 mg/dL code = 375) Reference Range: No NormalsOperator ID - [id number], RANDOM [id number] 17:13:00 Test Item Value Reference Range Interpretation Comments SODIUM URINE (BEAKER) (test code = 62 meq/L 243) Reference Range: No NormalsOperator ID - [id number] 16:20:00 Test Item Value Reference Range Interpretation Comments POC-GLUCOSE METER 180 mg/dL 70-110 H : TESTED A T [facility] (BEAKER) (test code [address], = 1538) [place] [address] 0: Editor Sound/Techni getachew ID = [id number] for Dwight Tolentino POCT-GLUCOSE [id number] 12:40:00 Test Item Value Reference Range Interpretation Comments POC-GLUCOSE METER 143 mg/dL 70-110 H : TESTED A T [facility] (BEAKER) (test code [address], = 1538) [place] [address] 0: Editor Sound/Techni getachew ID = [id number] for Dupl essis, Dwight CT, [id number] 12:24:00Unlisted Reason for Exam - Click Yes and Enter Reason Below->YesUnlisted Reason for Exam->Hematuria, h/o prostate cancerWill this procedure require oral contrast?->No [facility] : 1940 Sex: MFINAL REPORT ABDOMINAL AND PELVIS CT DATED 06/24/2020 CLINICAL INFORMATION: Unlisted Reason for ExamHematuria, h/o prostate cancer TECHNIQUE: Axial images of the abdomenand pelvis were obtained from diaphragm to the pubic symphysis without GI or intravenous contrast. This exam was performed according to our departmental dose-optimization program, which includes automated exposure control, adjustment of the mA and/or kV according to patient size and/or use of interactive reconstruction technique. COMMENT: Liver and spleen are normal in size without focal abnormality. Gallbladder is contracted. No gallstone or biliary dilatation is noted. Pancreas and adrenals areunremarkable. Both kidneys are normal in size. A 2.5 x 2.9 cm cyst is seen in the upper pole right kidney. A 1 6 cm cyst is seen in the upper pole left kidney. A 9 mm cyst is seen in the midpole leftkidney. A 2 mm and 3 mm stones are seen in the right kidney. No hydronephrosis or hydroureter is apparent. Diverticular disease is seen in the large bowel without diverticulitis. The small bowel and appendix are normal in caliber. Vascular calcification is seen in the abdominal aorta, bilateral renal,superior mesenteric, and bilateral iliac arteries. Prostate is normal in size. Fiducial markers are seen in the prostate. The urinary bladder is contracted. There is nonspecific wall thickening involving the urinary bladder secondary to nondistention or cystitis. No mass, adenopathy or ascites is prese nt. IMPRESSION: 1. Nonobstructive right renal stone and bilateral renal cysts.2. Diverticulosis without diverticulitis.3. Vascular calcification in the abdominal aorta, bilateral renal, superior mesenteric, and bilateral iliac arteries.4. Wall thickening involving the urinary bladder secondary to nond istention or cystitis. Signed: Jenniffer Palacio MDReport Verified Date/Time: 06/24/2020 12:24:37 ReadingLocation[facility] C[facility] Body Reading Room CT abdomen/pelvis without iv [id number] 12:24:00Interface, External Ris In - 06/24/2020 12:26 PM CSTFINAL REPORT ABDOMINAL AND PELVIS CT DATED 06/24/2020 CLINICAL INFORMATION: Unlisted Reason for ExamHematuria, h/o prostate cancer TECHNIQUE: Axial images of the abdomen and pelvis were obtained from diaphragm to the pubic symphysis without GI or intravenous contrast. This exam was performed according to our departmental dos e-optimization program, which includes automated exposure control, adjustment of the mA and/or kV according to patient size and/or use of interactive reconstruction technique. COMMENT: Liver and spleenare normal in size without focal abnormality. Gallbladder is contracted. No gallstone or biliary dil atation is noted. Pancreas and adrenals are unremarkable. Both kidneys are normal in size. A 2.5 x 2.9 cm cyst is seen in the upper pole right kidney. A 1 6 cm cyst is seen in the upper pole left kidney. A 9 mm cyst is seen in the midpole left kidney. A 2 mm and 3 mm stones are seen in the right kidney. No hydronephrosis or hydroureter is apparent. Diverticular disease is seen in the large bowel without diverticulitis. The small bowel and appendix are normal in caliber. Vascular calcification is seen in the abdominal aorta, bilateral renal, superior mesenteric, and bilateral iliac arteries. Prostate is normal in size. Fiducial markers are seen in the prostate. The urinary bladder is contracted. There is nonspecific wall thickening involving the urinary bladder secondary to nondistention or cystitis. No mass, adenopathy or ascites is present. IMPRESSION: 1. Nonobstructive right renal stone and bilateral renal cysts.2. Diverticulosis without diverticulitis.3. Vascular calcification in the abdominal aorta, bilateral renal, superior mesenteric, and bilateral iliac arteries.4. Wall thickening involving the urinary bladder secondary to nondistention or cystitis. Signed: Jenniffer Palacio MDReport Verified Date/Time: 06/24/2020 12:24:37 Reading Location: [facility] C013Y CT Body [facility] 09:15:00 Test Item Value Reference Range Interpretation Comments PSA (test code = 2857-1) 4.2 ng/mL 0-4 H LIBBY (test code = LIBBY) Editor Sound ID - RADHA C Lab Interpretation (test Abnormal code = 03960-8) [facility] 09:15:00 Test Item Value Reference Range Interpretation Comments PROSTATE SPECIFIC ANTIGEN (BEAKER) 4.2 ng/mL 0.0-4.0 H (test code = 844) Editor Sound ID - RADHA CPOCT-GLUCOSE [id number] 06:36:00 Test Item Value Reference Range Interpretation Comments POC-GLUCOSE METER 143 mg/dL 70-110 H : TESTED A T [facility] (BEAKER) (test code CHASEWOO [address], = 1538) [place] [id number]: Editor Sound/Techni getachew ID = [id number] for [facility] gilbert Comprehensive metabolic [id number] 04:21:00 Test Item Value Reference Range Interpretation Comments Protein, Total (test 7.5 See_Comment [Autom ated code = 2885-2) message] The system which generated this result transmit ghazal reference range : 6.0 - 8.5 gm/dL . The reference range was not u sed to interpret th is result as normal/abnormal . Albumin (test code = 3.8 g/dL 3.5-5 34685-0) Alkaline Phosphatase 84 U/L 30-115 (test code = 6768-6) Total Bilirubin (test 0.4 mg/dL 0.1-1.2 code = 1975-2) Sodium (test code = 146 meq/L 340-241 0938-2) Potassium (test code 3.2 meq/L 3.6-5.5 L = 2823-3) Chloride (test code = 109 meq/L 98-106 H 5-0) CO2 (test code = 20 meq/L 20-29 8-9) BUN (test code = 27 mg/dL 10-26 H 3094-0) Creatinine (test code 1.96 mg/dL 0.5-1.2 H = 2160-0) Glucose (test code = 151 mg/dL 70-110 H 2345-7) Calcium (test code = 9.4 mg/dL 8.5-10.5 78414-0) AST (test code = 14 U/L 5-40 1920-8) ALT (test code = 9 U/L 5-50 1742-6) EGFR (test code = 40 mL/min/1.73 [place] [address]-3) NOT ACCURATE CREATININE CLEARANCE IN PREDICTING GLOMERULAR FILTRATION RATE . ESTIMATED GFR I S NOT APPLICABLE FOR DIALYSIS PATIEN TS. LIBBY (test code = LIBBY) Editor Sound ID - [employer] Lab Interpretation Abnormal (test code = 48964-6) [facility] CenterCOMPREHENSIVE METABOLIC [id number] 04:21:00 Test Item Value Reference Range Interpretation Comments TOTAL PROTEIN 7.5 gm/dL 6.0-8.5 (BEAKER) (test code = 770) ALBUMIN (BEAKER) 3.8 g/dL 3.5-5.0 (test code = 1145) ALKALINE PHOSPHATASE 84 U/L 30-115 (BEAKER) (test code = 346) BILIRUBIN TOTAL 0.4 mg/dL 0.1-1.2 (BEAKER) (test code = 377) SODIUM (BEAKER) (test 146 meq/L 135-148 code = 381) POTASSIUM (BEAKER) 3.2 meq/L 3.6-5.5 L (test code = 379) CHLORIDE (BEAKER) 109 meq/L 98-106 H (test code = 382) CO2 (BEAKER) (test 20 meq/L - code = 355) BLOOD UREA NITROGEN 27 mg/dL 10-26 H (BEAKER) (test code = 354) CREATININE (BEAKER) 1.96 mg/dL 0.50-1.20 H (test code = 358) GLUCOSE RANDOM 151 mg/dL 70-110 H (BEAKER) (test code = 652) CALCIUM (BEAKER) 9.4 mg/dL 8.5-10.5 (test code = 697) AST (SGOT) (BEAKER) 14 U/L 5-40 (test code = 353) ALT (SGPT) (BEAKER) 9 U/L 5-50 (test code = 347) EGFR (BEAKER) (test 40 mL/min/1.73 ESTIMA GHAZAL GFR IS code = 1092) sq m NOT ACCURATE CREATININE CLEARANCE IN PREDICTING GLOMERULAR FILTRATION RATE . ESTIMATED GFR I S NOT APPLICABLE FOR DIALYSIS PATIEN TS. Editor Sound ID - BIOLAProthrombin time/[id number] 04:04:00 Test Item Value Reference Interpretation Comments Range Protime (test code = 11.6 See_Comment Final 5902-2) Information (Auto Output) [Automated message] The system which generated this result transmitted reference range : 9.8 - 12.0 seconds. The reference range was not used to interpret this result as normal/abnormal . INR (test code = 1.02 See_Comment Final 6301-6) Information (Auto Output) [Automated message] The system which generated this result transmitted reference range : <=5.90. The reference range was not used to interpret this result as normal/abnormal . LIBBY (test code = RECOMMENDED LIBBY) COUMADIN/WARFARIN INR THERAPY RANGESSTANDARD DOSE: 2.0 - 3.0 Includes: PROPHYLAXIS for venous thrombosis, systemic embolization; TREATMENT for venous thrombosis and/or pulmonary embolus.HIGH RISK: Target INR is 2.5-3.5 for patients with mechanical heart valves. Lab Interpretation Normal (test code = 04263-6) [facility] CenterPROTHROMBIN TIME/[id number] 04:04:00 Test Item Value Reference Range Interpretation Comments PROTIME (BEAKER) 11.6 seconds 9.8-12.0 Final Infor mation (test code = 759) (Auto Outp ut) INR (BEAKER) (test 1.02 See_Comment Final Inf ormation code = 370) (Auto Output) [Automated mess age] The system [employer] generated this result transmitted ref erence range: <=5.90. The reference range was not used to int erpret this result as normal/abnormal . RECOMMENDED COUMADIN/WARFARIN INR THERAPY RANGESSTANDARD DOSE: 2.0 - 3.0 Includes: PROPHYLAXIS forvenous thrombosis, systemic embolization; TREATMENT for venous thrombosis and/or pulmonary embolus.HIGH RISK: Target INR is 2.5-3.5 for patients with mechanical heart valves.CBC W/PLT COUNT & AUTO DIFFERENTIAL 2020-06-24 03:47:00 Test Item Value Reference Range Interpretation Comments WHITE BLOOD CELL COUNT (BEAKER) 8.9 K/ L 4.0-10.0 (test code = 775) RED BLOOD CELL COUNT (BEAKER) 4.26 M/ L 4.20-5.80 (test code = 761) HEMOGLOBIN (BEAKER) (test code = 11.9 GM/DL 13.0-16.8 L 410) HEMATOCRIT (BEAKER) (test code = 36.6 % 36.0-50.0 411) MEAN CORPUSCULAR VOLUME (BEAKER) 85.9 fL 82.0-99.0 (test code = 753) MEAN CORPUSCULAR HEMOGLOBIN 27.9 pg 27.0-33.0 (BEAKER) (test code = 751) MEAN CORPUSCULAR HEMOGLOBIN CONC 32.5 GM/DL 32.0-36.0 (BEAKER) (test code = 752) RED CELL DISTRIBUTION WIDTH 15.0 % 12.0-15.0 (BEAKER) (test code = 412) PLATELET COUNT (BEAKER) (test 219 K/CU MM 150-430 code = 756) MEAN PLATELET VOLUME (BEAKER) 10.1 fL 6.0-11.5 (test code = 754) NUCLEATED RED BLOOD CELLS 0 /100 WBC 0-0 (BEAKER) (test code = 413) NEUTROPHILS RELATIVE PERCENT 78 % (BEAKER) (test code = 429) LYMPHOCYTES RELATIVE PERCENT 11 % (BEAKER) (test code = 430) MONOCYTES RELATIVE PERCENT 10 % (BEAKER) (test code = 431) EOSINOPHILS RELATIVE PERCENT 1 % (BEAKER) (test code = 432) BASOPHILS RELATIVE PERCENT 1 % (BEAKER) (test code = 437) NEUTROPHILS ABSOLUTE COUNT 6.89 K/ L 1.80-8.00 (BEAKER) (test code = 670) LYMPHOCYTES ABSOLUTE COUNT 0.98 K/ L 1.48-4.50 L (BEAKER) (test code = 414) MONOCYTES ABSOLUTE COUNT (BEAKER) 0.88 K/ L 0.00-1.30 (test code = 415) EOSINOPHILS ABSOLUTE COUNT 0.05 K/ L 0.00-0.50 (BEAKER) (test code = 416) BASOPHILS ABSOLUTE COUNT (BEAKER) 0.05 K/ L 0.00-0.20 (test code = 417) IMMATURE GRANULOCYTES-RELATIVE 0 % 0-0 PERCENT (BEAKER) (test code = 2801) CREATININE, RANDOM [id number] 00:23:00 Test Item Value Reference Range Interpretation Comments CREATININE URINE (BEAKER) (test 50.8 mg/dL code = 375) Reference Range: No NormalsOperator ID - SHANNONSODIUM, RANDOM [id number] 00:22:00 Test Item Value Reference Range Interpretation Comments SODIUM URINE (BEAKER) (test code = 62 meq/L 243) Reference Range: No NormalsOperator ID - SHANNONUrinalysis with Microscopic If [id number] 00:17:00 Test Item Value Reference Range Interpretation Comments Color, UA (test code = 5778-6) [place] Clarity, UA (test code = 5767-9) Cloudy Specific [place], UA (test code 1.015 1.001-1.035 = 5811-5) pH, UA (test code = 5803-2) 6.0 5.0-8.0 Protein, UA (test code = 30 mg/dL Negative A 94972-1) Glucose, UA (test code = 365) >=1000 mg/dL Negative A Ketones, UA (test code = 2514-8) Negative Negative Bilirubin, UA (test code = Negative Negative 75452-2) Blood, UA (test code = 30700-7) Large Negative A Nitrite, UA (test code = 5802-4) Negative Negative Leukocytes, UA (test code = Negative Negative 5799-2) Urobilinogen, UA (test code = 0.2 mg/dL 0.2-1 25936-9) Specimen Source (test code = 2795) Lab Interpretation (test code = Abnormal 77585-3) [facility] CenterURINALYSIS WITH MICROSCOPIC IF [id number] 00:17:00 Test Item Value Reference Range Interpretation Comments COLOR (BEAKER) (test code = 470) [place] CLARITY (BEAKER) (test code = Cloudy 469) SPECIFIC GRAVITY UA (BEAKER) 1.015 1.001-1.035 (test code = 468) PH UA (BEAKER) (test code = 467) 6.0 5.0-8.0 PROTEIN UA (BEAKER) (test code = 30 mg/dL Negative A 464) GLUCOSE UA (BEAKER) (test code = >=1000 mg/dL Negative A 365) KETONES UA (BEAKER) (test code = Negative Negative 371) BILIRUBIN UA (BEAKER) (test code Negative Negative = 462) BLOOD UA (BEAKER) (test code = Large Negative A 461) NITRITE UA (BEAKER) (test code = Negative Negative 465) LEUKOCYTE ESTERASE UA (BEAKER) Negative Negative (test code = 466) UROBILINOGEN UA (BEAKER) (test 0.2 mg/dL 0.2-1.0 code = 463) SOURCE(BEAKER) (test code = 2795) Urinalysis Microscopic [id number] 00:16:00 Test Item Value Reference Range Interpretation Comments RBC, UA (test code >100 See_Comment [Automat ed message] The = 799-7) system which ge nerated this result tra nsmitted reference range : /HPF. The reference r susu was not used to int erpret this result as normal/abnormal . WBC, UA (test code 5-10 See_Comment [Automat ed message] The = 98702-9) system which ge nerated this result tra nsmitted reference range : /HPF. The reference r susu was not used to int erpret this result as normal/abnormal . Bacteria, UA (test None Seen code = 26858-1) [facility] CenterURINALYSIS [id number] 00:16:00 Test Item Value Reference Range Interpretation Comments RBC UA-MANUAL (BEAKER) (test code = >100 /HPF 1659) WBC UA-MANUAL (BEAKER) (test code = 5-10 /HPF 1661) BACTERIA (BEAKER) (test code = 517) None Seen POCT-GLUCOSE [id number] 23:12:00 Test Item Value Reference Range Interpretation Comments POC-GLUCOSE METER 151 mg/dL 70-110 H : TESTED A T [facility] (test code JENNYOO Ste[address], = 1538) [facility] 7703 0: Editor Sound/Techni getachew ID = [id number] for Alvin Still
--- NOTE | 2020-08-01 16:10 | ER ---
Nurse's Notes [facility] Name: Leonid Guerrero Age: 79 yrs Sex: Male : 1940 Arrival Date: 08/01/2020 Time: 10:51 Bed 25 Private MD: Diagnosis: Encounter for fitting and adjustment of urinary device-change of whatley catheter Presentation: 08/01 11:29 Chief complaint: Patient states: "They put a catheter in me and I need to get it out." ss Pt reports he was unable to void because of blood in his urine, was transferred to another hospital. Pt states he has no issues at this time, but just needs his Whatley out. The next available appointment at the urologist office is on 08/10. Coronavirus screen: Client denies travel out of the [place] in the last 14 days. Ebola Screen: Patient denies exposure to infectious person. Patient denies travel to an Ebola-affected area in the 21 days before illness onset. Initial Sepsis Screen: Does the patient meet any 2 criteria? No. Patient's initial sepsis screen is negative. Does the patient have a suspected source of infection? No. Patient's initial sepsis screen is negative. Risk Assessment: Do you want to hurt yourself or someone else? Patient reports no desire to harm self or others. Onset of symptoms was June 23, 2020. 11:29 Method Of Arrival: Ambulatory 11:29 Acuity: ELIZABETH 4 Historical: - Allergies: 11:32 No Known Allergies; ss - PMHx: 11:32 Diabetes - NIDDM; ss - PSHx: 11:32 hemorrhoidectomy; ss - Immunization history:: Adult Immunizations up to date. - Social history:: Smoking status: Patient denies any tobacco usage or history of. Screenin:28 Abuse screen: Denies threats or abuse. Nutritional screening: No deficits noted. tw2 Tuberculosis screening: No symptoms or risk factors identified. Fall Risk None identified. Assessment: 13:12 Reassessment: provider at bedside at this time. tw2 13:22 General: Appears in no apparent distress. slender, well groomed, Behavior is calm, tw2 cooperative, appropriate for age. Pain: Denies pain. Neuro: Level of Consciousness is awake, alert, obeys commands, Oriented to person, place, time, situation. Cardiovascular: Capillary refill < 3 seconds. Respiratory: Airway is patent Respiratory effort is even, unlabored, Respiratory pattern is regular, symmetrical. GI: No signs and/or symptoms were reported involving the gastrointestinal system. : Reports hwatley with leg bag attached, noted approx 300 ml of urine in collection bag at this time. EENT: No signs and/or symptoms were reported regarding the EENT system. Derm: No signs and/or symptoms reported regarding the dermatologic system. Musculoskeletal: Range of motion: intact in all extremities. 13:59 Reassessment: pt given water at this time. tw2 15:13 Reassessment: Patient appears in no apparent distress at this time. No changes from tw2 previously documented assessment. Patient and/or family updated on plan of care and expected duration. Pain level reassessed. Patient is alert, oriented x 3, equal unlabored respirations, skin warm/dry/pink. pt unable to make urine at this time, asked provider "can i have a little more time before we do another whatley". 16:14 Reassessment: Patient appears in no apparent distress at this time. No changes from tw2 previously documented assessment. Patient and/or family updated on plan of care and expected duration. Pain level reassessed. Patient is alert, oriented x 3, equal unlabored respirations, skin warm/dry/pink. Vital Signs: 11:29 BP 133 / 67; Pulse 71; Resp 16; Temp 97.0(TE); Pulse Ox 99% on R/A; Weight 89.36 kg; ss Height 5 ft. 11 in. (180.34 cm); Pain 0/10; 13:31 BP 134 / 74; Pulse 56; Resp 17; Pulse Ox 99% on R/A; tw2 15:14 BP 126 / 65; Pulse 54; Resp 17; Pulse Ox 99% on R/A; tw2 11:29 Body Mass Index 27.48 (89.36 kg, 180.34 cm) ED Course: 10:51 Patient arrived in ED. ds1 11:32 Triage completed. ss 11:32 Arm band placed on right wrist. ss 13:09 Kenzie Aquino FNP-C [facility]. kb 13:09 Florencio Rincon MD is Attending Physician. kb 13:10 Bed in low position. Call light in reach. Pulse ox on. NIBP on. tw2 13:12 Kenia Kidd, MAX is Primary Nurse. tw2 13:22 Whatley cath removed intact, balloon deflated, 26 ml discarded, pt tolerated well, tw2 MAX Ferrell served as wheat buyer, pt given urinal for sample collection. 16:08 Whatley cath inserted, using sterile technique, 18 Fr., by me, balloon inflated, other tw2 Josiane Hernandez served as wheat buyer. 16:14 No provider procedures requiring assistance completed. Patient did not have IV access tw2 during this emergency room visit. Administered Medications: No medications were administered Output: 16:08 Urine: 800ml (Whatley); Total: 800ml. tw2 Outcome: 16:09 Discharge ordered by . dagoberto 16:14 Discharged to home ambulatory. tw2 16:14 Condition: stable 16:14 Discharge instructions given to patient, Instructed on discharge instructions, follow up and referral plans. Demonstrated understanding of instructions, follow-up care. 16:15 Patient left the ED. tw2 Signatures: Kenzie Aquino, BORING MACHINE OPERATOR HORIZONTAL-C BORING MACHINE OPERATOR HORIZONTAL-Ckb Camille Madden ds1 Mariaelena Solis RN RN Kenia Kidd RN RN tw2 Corrections: (The following items were deleted from the chart) :32 11:29 Chief complaint: Patient states: "They put a catheter in me and I need to get it ss out." Pt reports he was unable to void because of blood in his urine, was transferred to another hospital. Pt states he has no issues at this time, but just needs his Whatley out. The next available appointment at the urologist office is on 08/10 :32 11:29 Onset of symptoms was July 24, 2020 [facility] 14:00 12:22 General: Appears in no apparent distress. slender, well groomed, Behavior is tw2 calm, cooperative, appropriate for age, tw2 14: 12:22 Pain: Denies pain. tw2 tw2 14: 12:22 Neuro: Level of Consciousness is awake, alert, obeys commands, Oriented to tw2 person, place, time, situation, tw2 14:00 12:22 Cardiovascular: Capillary refill < 3 seconds tw2 tw2 14:00 12:22 Respiratory: Airway is patent Respiratory effort is even, unlabored, Respiratory tw2 pattern is regular, symmetrical, tw2 14:00 12:22 GI: No signs and/or symptoms were reported involving the gastrointestinal system. 12: : Reports whatley with leg bag attached, noted approx 300 ml of urine in tw2 collection bag at this time. : EENT: No signs and/or symptoms were reported regarding the EENT system. 12: Derm: No signs and/or symptoms reported regarding the dermatologic system. : Musculoskeletal: Range of motion: intact in all extremities,
--- NOTE | 2020-08-01 16:10 | EDPHYS ---
Physician Documentation [facility] Name: Leonid Guerrero Age: 79 yrs Sex: Male : 1940 Arrival Date: 08/01/2020 Time: 10:51 Bed 25 Private MD: ED Physician Florencio Rincon HPI: 08/01 14:20 This 79 yrs old Black Male presents to ER via Ambulatory with complaints of Problem kb With Urinary Catheter. 14:20 The patient presents with a Whatley catheter problem, wants it taken out. Onset: The kb symptoms/episode began/occurred last month. Modifying factors: The symptoms are alleviated by nothing, the symptoms are aggravated by nothing. Associated signs and symptoms: The patient has no apparent associated signs or symptoms. Severity of symptoms: At their worst the symptoms were mild, moderate, in the emergency department the symptoms are unchanged. The patient has not experienced similar symptoms in the past. The patient has been recently seen at the [facility] Emergency Department, last month. Pt reports he came in last month (06/23/20) for blood in his urine. They placed a whatley and transferred him to [facility] in [place]. States he was discharged from there and told to follow up with a urologist. Has an appt with a urologist on 08/10/20, but came today to have whatley removed. States it is uncomfortable and it leaks at night. States he hasn't had blood in his urine for the past 3 weeks. . Historical: - Allergies: 11:32 No Known Allergies; ss - PMHx: 11:32 Diabetes - NIDDM; ss - PSHx: 11:32 hemorrhoidectomy; ss - Immunization history:: Adult Immunizations up to date. - Social history:: Smoking status: Patient denies any tobacco usage or history of. ROS: 14:19 Constitutional: Negative for fever, chills, and weight loss, Respiratory: Negative for kb shortness of breath, cough, wheezing, and pleuritic chest pain, Abdomen/GI: Negative for abdominal pain, nausea, vomiting, diarrhea, and constipation, : Negative for injury, bleeding, discharge, and swelling, Neuro: Negative for headache, weakness, numbness, tingling, and seizure. Exam: 14:19 Constitutional: This is a well developed, well nourished patient who is awake, alert, kb and in no acute distress. Head/Face: Normocephalic, atraumatic. Respiratory: Respirations even and unlabored. No increased work of breathing, no retractions or nasal flaring. Neuro: Awake and alert, GCS 15, oriented to person, place, time, and situation. Moves all extremities. Normal gait. 14:19 : a whatley is noted, urine is clear. Vital Signs: 11:29 BP 133 / 67; Pulse 71; Resp 16; Temp 97.0(TE); Pulse Ox 99% on R/A; Weight 89.36 kg; ss Height 5 ft. 11 in. (180.34 cm); Pain 0/10; 13:31 BP 134 / 74; Pulse 56; Resp 17; Pulse Ox 99% on R/A; tw2 15:14 BP 126 / 65; Pulse 54; Resp 17; Pulse Ox 99% on R/A; tw2 11:29 Body Mass Index 27.48 (89.36 kg, 180.34 cm) ss MDM: 13:09 Patient medically screened. kb 14:18 Data reviewed: vital signs, nurses notes. Data interpreted: Pulse oximetry: on room air kb is 99 %. Interpretation: normal. 14:23 ED course: Whatley removed and pt feels more comfortable. Waiting for pt to urinate on kb his own before discharge. pt drinking water. . 15:30 ED course: Pt educated that bladder scan results indicate that he does need the whatley kb at this time. Pt requests some more time to try to urinate before whatley be placed. . 15:59 Counseling: I had a detailed discussion with the patient and/or guardian regarding: the kb historical points, exam findings, and any diagnostic results supporting the discharge/admit diagnosis, lab results, the need for outpatient follow up, a urologist, to return to the emergency department if symptoms worsen or persist or if there are any questions or concerns that arise at home. ED course: Pt able to urinate approx 50ml. Denies any pain with urination. 2 small blood clots noted to urine. I recommended a new whatley be placed at least until his urologist appt on 08/10/20. Pt does not want whatley, but agrees that he needs it. Pt in agreement with plan of care. 16:09 ED course: Pt reports this whatley is much more comfortable. . kb 08/01 13:15 Order name: Misc. Order: remove whatley; Complete Time: 13:22 kb 08/01 15:13 Order name: Bladder Scanner; Complete Time: 15:13 tw2 08/01 15:59 Order name: Whatley; Complete Time: 16:08 kb 08/01 15:59 Order name: Leg Bag; Complete Time: 16:08 kb Administered Medications: No medications were administered Disposition: 17:23 Co-signature as Attending Physician, Florencio Rincon MD. rn Disposition: 08/01/20 16:09 Discharged to Home. Impression: Encounter for fitting and adjustment of urinary device - change of whatley catheter. - Condition is Stable. - Discharge Instructions: Whatley Catheter Care, Adult, [id number]. - Medication Reconciliation Form, Thank You Letter, Antibiotic Education, Prescription Opioid Use form. - Follow up: Emergency Department; When: As needed; Reason: Worsening of condition. Follow up: Private Physician; When: 2 - 3 days; Reason: Recheck today's complaints, Continuance of care, Re-evaluation by your physician. Signatures: Kenzie Aquino, SEARCH OPTIMIZATION ANALYST-C SEARCH OPTIMIZATION ANALYST-Ckb Florencio Rincon MD MD rn Smirch, Shelby, RN RN ss Wise, Tara, RN RN tw2 Corrections: (The following items were deleted from the chart) 16:15 16:09 08/01/2020 16:09 Discharged to Home. Impression: Encounter for fitting and tw2 adjustment of urinary device - change of whatley catheter. Condition is Stable. Forms are Medication Reconciliation Form, Thank You Letter, Antibiotic Education, Prescription Opioid Use. Follow up: Emergency Department; When: As needed; Reason: Worsening of condition. Follow up: Private Physician; When: 2 - 3 days; Reason: Recheck today's complaints, Continuance of care, Re-evaluation by your physician. kb
[2020-08-01 16:19] VITALS: TEMP 97; O2SAT 99
[2020-08-01 16:22] VITALS: BP 126/65
[2020-08-01 16:22] LABS: Urine Blood 3+ (Negative); Urine Glucose 3+ (Negative); Urine Protein 1+ (Negative); Urine Specific Gravity <=1.005 (1.005-1.030); Urine pH 5.5 (5.0-7.0)
== END 2020-08-01 16:15 | disposition home or self-care (01) ==
LOC: ER 10:46
DX: Z46.6 Encounter for fitting and adjustment of urinary device (principal)
CPT/HCPCS: 51702; 81003; 99284